=== PATIENT | female | born 1965 | race African-American/Black ===

== ENCOUNTER → 2016-10-30 | Outpatient (CLI) | payer MEDICAID ==
--- NOTE | 2016-10-30 13:24 | RADIOLOGY REPORT (SQ) ---
EXAM DESCRIPTION: U/S RETROPERITON (RENAL/AORTA) COMPLETED DATE/TIME: 10/30/2016 12:57 pm REASON FOR STUDY: COLIC R10.83 COLIC COMPARISON: None. TECHNIQUE: Dynamic and static grayscale images acquired of the kidneys and bladder and recorded on P ACS. Additional selected color Doppler and spectral images recorded. LIMITATIONS: None. FINDINGS: RIGHT KIDNEY: Normal size and appearance, measures 9.9 cm. No masses. No calcifications. No hydronephrosis. LEFT KIDNEY: Normal size and appearance, measuring 9 cm. No masses. No hydronephrosis. No calcifi cations. BLADDER: Incompletely filled. Poorly evaluated. OTHER FINDINGS: No other significant finding. IMPRESSION: NORMAL RENAL AND BLADDER ULTRASOUND. TECHNICAL DOCUMENTATION: JOB ID: [id number] [employer]- All Rights Reserved
== END ==
LOC: RAD 12:17
PROVIDERS: ATTEND Internal Medicine
DX: R10.84 Generalized abdominal pain (principal)
CPT/HCPCS: 76770

== ENCOUNTER → 2016-12-01 | Outpatient (CLI) | payer MEDICAID ==
--- NOTE | 2016-12-01 13:36 | WOMENS IMAGING REPORT ---
EXAM DESCRIPTION: BILAT SCREENING MAMMO W/CAD COMPLETED DATE/TIME: 12/01/2016 10:44 am REASON FOR STUDY: ROUTINE SCREENING; Z12.31 Z12.31 ENCNTR SCREEN MAMMOGRAM FOR MALIGNANT NEOPLASM O F ROSA COMPARISON: Multiple since 2009 TECHNIQUE: Standard craniocaudal and mediolateral oblique views of each breast recorded using [employer] acquisition. LIMITATIONS: None. FINDINGS: Findings present which are benign by mammographic criteria. No suspicious masses, calcifi cations or architectural distortion. Pertinent benign findings: Stable benign right breast calcification 12 o'clock Read with the assistance of CAD. .[facility] R2 Cenova Version 1.3 .[facility] Imaging - R2 Cenova Version 1.3 .[facility] Imaging - R2 Cenova Version 2.4 .[facility] [place] Cenova Version 2.4 .[facility] - R2 [employer] Version 9.2 Benign mammographic findings may include one or more of the following: Smooth masses, popcorn/rim/co arse calcifications, asymmetries, post-procedure changes, and lesions with long-standing stability. IMPRESSION: BENIGN MAMMOGRAPHIC FINDINGS. BIRADS 2 BREAST DENSITY: b. There are scattered areas of fibroglandular density. BIRAD: 2 BENIGN FINDING(S) RECOMMENDATION: ROUTINE SCREENING COMMENT: The patient has been notified of the results by letter per MQSA requirements. Additional no tification policies are in place for contacting patient with suspicious or incomplete findings. Quality ID #[id number]: The [employer] recommends an annual screening mammogram for women aged 40 years or over. This facility utilizes a reminder system to ensure that all patients receive reminder letters, and/or direct phone calls for appointments. This includes reminders for routine scr eening mammograms, diagnostic mammograms, or other Breast Imaging Interventions when appropriate. Th is patient will be placed in the appropriate reminder system. The [employer] (ACR) has developed recommendations for screening MRI of the breast s in certain patient populations, to be used in conjunction with mammography. Breast MRI surveillanc e may be appropriate for women with more than 20% lifetime risk of developing breast cancer as deter mined by genetic testing, significant family history of the disease, or history of mantle radiation f or Hodgkins Disease. ACR Practice Guidelines 2008. TECHNICAL DOCUMENTATION: FINDING NUMBER: (1) ASSESSMENT: (1) JOB ID: [id number] [employer]- All Rights Reserved
== END ==
LOC: WI 08:59
PROVIDERS: ATTEND Internal Medicine
DX: Z12.31 Encounter for screening mammogram for malignant neoplasm of breast (principal)
CPT/HCPCS: 77067; G0202

== ENCOUNTER 2017-05-30 06:51 | Day surgery (SDC) | payer MEDICAID ==
[2017-05-11 10:46] LABS: HEMATOCRIT 37.5 % (36.0-47.0); HEMOGLOBIN 12.8 g/dL (12.0-15.5); HGB HCT DIFFERENCE 0.9; MEAN CORPUSCULAR HEMOGLOBIN 31.3 pg (27.0-33.4); MEAN CORPUSCULAR VOLUME 92 fl (80-97); RED BLOOD COUNT 4.08 10^6/uL (3.72-5.28); WHITE BLOOD COUNT 6.4 10^3/uL (4.0-10.5)
[~2017-05-30 06:51] MED LIST: ACETAMINOPHEN 100 ML IV ONE; CEFAZOLIN 1 GM/D5W RTU 1 GM/50 ML RTUPB IV SCH; DEXTROSE 5%-LACTATED RINGERS 1,000 ML IV PRN; FENTANYL CITRATE INJ/PF 100 MCG/2 ML AMPUL ONE; LACTATED RINGERS 1000 ML IV PRN; LIDOCAINE 0.5% INJ-PF (5 MG/ML) 50 ML SDV SUBCUT PRN; MIDAZOLAM 2 MG/2 ML INJ ONE; NORMAL SALINE 1000 ML (RENAL PATIENTS) IV PRN; ONDANSETRON HCL INJ/PF 4 MG/2 ML SDV ONE; PROPOFOL INJ 200 MG/20 ML VIAL IV ONE
[2017-05-30] MEDS ORDERED: LIDOCAINE 0.5% INJ-PF (5 MG/ML) 50 ML SDV ONE (07:24)
[2017-05-30] MEDS ORDERED: BUPIVACAINE HCL 0.25 % INJ/PF (2.5 MG/1 ML) 30 ML VIAL ONE (07:24)
[2017-05-30] MEDS ORDERED: ALBUTEROL SULFATE 0.083% NEB 2.5 MG/3 ML AMPUL NEB ONE (07:27)
[2017-05-30] MEDS ORDERED: FAMOTIDINE INJ/PF 20 MG/2 ML SDV IV ONE (07:57)
[2017-05-30] MEDS ORDERED: METOCLOPRAMIDE HCL INJ/PF 10 MG/2 ML SDV ONE (07:59)
[2017-05-30] MEDS ORDERED: FENTANYL CITRATE INJ/PF 100 MCG/2 ML AMPUL IV PRN (09:27)
[2017-05-30] MEDS ORDERED: DIPHENHYDRAMINE HCL 50 MG/ML VIAL IV PRN (09:27)
[2017-05-30] MEDS ORDERED: PROMETHAZINE HCL INJ 25 MG/1 ML VIAL IV PRN ×2 (09:27)
[2017-05-30] MEDS ORDERED: ONDANSETRON HCL INJ/PF 4 MG/2 ML SDV IV PRN (09:27)
--- NOTE | 2017-05-30 09:42 | PDOC DISCHARGE SUMMARY ---
Discharge Summary (SDC) - Discharge Final Diagnosis: Left wrist synovitis sheath cyst Date of Surgery: 05/30/17 Discharge Date: 05/30/17 Condition: Good Treatment or Instructions: Keep left arm elevated at all times. Remove exterior dressing in 48 hours. Leave Steri-Strips in place. We will up with [facility] in 1-2 weeks. Prescription for Toradol on chart Referrals: ALENA MARIO MD [Primary Care Provider] - Discharge Diet: As Tolerated Discharge Activity: Activity As Tolerated, Other - Keep left arm elevated on pillows for the next 48 hours Home Care Assistance: None Needed Report the Following to Your Physician Immediately: Shortness of Breath, Increase in Pain, Fever over 101 Degrees
--- NOTE | 2017-05-30 09:46 | Operative Report ---
Operative Report DATE OF SURGERY: 05/30/17 PREOPERATIVE DIAGNOSIS: Left dorsal surface wrist synovial sheath cyst POSTOPERATIVE DIAGNOSIS: Same OPERATION: Complete excision of left wrist synovial sheath cyst TISSUE REMOVED OR ALTERED: Cyst to pathology COMPLICATIONS: None ESTIMATED BLOOD LOSS: Scant INTRAOPERATIVE FINDINGS: See below PROCEDURE: Patient was seen in the preop holding area with left wrist synovial sheath cyst was marked. She was then taken to the operating room where she underwent LMAC anesthesia. Left wrist was exposed, the left wrist hand and forearm were prepped and draped in sterile fashion with Betadine. Surgical plan surgical timeout were conducted. Skin marking made on the prominent aspect of the synovial sheath cyst. The cyst was at the base of the left wrist towards the first metacarpal junction. The skin was anesthetized 1% lidocaine mixed with quarter percent Marcaine. Approximately 3 cm incision was made with a knife. Subcutaneous tissue divided, and the splayed fibers of the dorsal retinaculum were opened. We got right onto the cyst and dissected out in its entirety from surrounding structures. This was approximately 2 cm cyst we took it down to its point of origination which was a somewhat broad-based moment. The base was oversewed with a 3-0 Vicryl suture and the cyst amputated and sent to pathology We checked the recesses of the wound for bleeding and there was none wound closed in layers with 3-0 Vicryl 4-0 Vicryl benzoin Steri-Strips and a bulky dressing applied. Patient tolerated the procedure well, taken to recovery room in stable condition.
--- NOTE | 2017-05-30 13:15 | EKG REPORT ---
SEVERITY:- ABNORMAL ECG - NSR 78 INTRAVENTRICULAR CONDUCTION DELAY : Confirmed by: Daniel Linda MD 30-May-2017 13:15:12
[2017-05-30 13:43] VITALS: BP 115/78
== END 2017-05-30 11:20 | disposition home or self-care (01) ==
LOC: OROUT 06:51
PROVIDERS: ATTEND Surgery
PROC: 0RBP0ZZ Excision of Left Wrist Joint, Open Approach (ICD-10-PCS; principal; 2017-05-30 09:00)
DX: M67.432 Ganglion, left wrist (principal); I10 Essential (primary) hypertension; K21.9 Gastro-esophageal reflux disease without esophagitis; E11.9 Type 2 diabetes mellitus without complications; G43.909 Migraine, unspecified, not intractable, without status migrainosus; M19.90 Unspecified osteoarthritis, unspecified site; F17.210 Nicotine dependence, cigarettes, uncomplicated; Z79.899 Other long term (current) drug therapy; Z79.84 Long term (current) use of oral hypoglycemic drugs
CPT/HCPCS: 36415 ×2; 82962; 84132; 85027; 88304 ×2; 93005; 93010; 25111; J2250; J0690; J3010; J3490; J2765; J2405; S0020; J2704; S0028; J0131; 1810

== ENCOUNTER → 2017-11-09 | Outpatient (CLI) | payer MEDICAID ==
--- NOTE | 2017-11-09 12:29 | RADIOLOGY REPORT (SQ) ---
EXAM DESCRIPTION: FOOT LEFT 2 VIEWS COMPLETED DATE/TIME: 11/09/2017 11:57 am REASON FOR STUDY: PAIN IN LEFT FOOT M25.552 PAIN IN LEFT HIP M79.672 PAIN IN LEFT FOOT COMPARISON: None. NUMBER OF VIEWS: Three views. TECHNIQUE: AP, lateral and oblique radiographic images acquired of the left foot. LIMITATIONS: None. FINDINGS: MINERALIZATION: Normal. BONES: No acute fracture or dislocation. No worrisome bone lesions. JOINTS: No effusions. SOFT TISSUES: No soft tissue swelling. No foreign body. OTHER: No other significant finding. IMPRESSION: NEGATIVE STUDY OF THE LEFT FOOT. NO RADIOGRAPHIC EVIDENCE OF ACUTE INJURY. TECHNICAL DOCUMENTATION: JOB ID: [id number] [employer]- All Rights Reserved Reading location - IP/workstation name: [email or web address]
--- NOTE | 2017-11-09 12:30 | RADIOLOGY REPORT (SQ) ---
EXAM DESCRIPTION: HIP LEFT AP/LATERAL COMPLETED DATE/TIME: 11/09/2017 11:57 am REASON FOR STUDY: PAIN IN LEFT HIP M25.552 PAIN IN LEFT HIP M79.672 PAIN IN LEFT FOOT COMPARISON: Left hip films 07/14/2014 NUMBER OF VIEWS: Two views. TECHNIQUE: AP pelvis and additional frog-leg view of the left hip. LIMITATIONS: None. FINDINGS: MINERALIZATION: Normal. LEFT HIP: No fracture or dislocation. No worrisome bone lesions. RIGHT HIP: No fracture or dislocation. No worrisome bone lesions. PUBIS AND ISCHIUM: No fracture. PELVIS: No fracture. SACRUM: No fracture or dislocation. No worrisome bone lesions. LOWER LUMBAR SPINE: No fracture or dislocation. No worrisome bone lesions. No significant disc disea se. SOFT TISSUES: No findings. OTHER: No other significant finding. IMPRESSION: NEGATIVE STUDY OF THE LEFT HIP AND PELVIS. NO RADIOGRAPHIC EVIDENCE OF ACUTE INJURY. TECHNICAL DOCUMENTATION: JOB ID: [id number] [employer]- All Rights Reserved Reading location - IP/workstation name: [facility] [email or web address]
== END ==
LOC: RAD 11:16
PROVIDERS: ATTEND Internal Medicine
DX: M25.552 Pain in left hip (principal); M79.672 Pain in left foot

== ENCOUNTER 2017-11-10 12:34 | Emergency (ER) | payer MEDICAID ==
[2017-11-10 12:40] VITALS: BP 172/120
--- NOTE | 2017-11-10 12:50 | ER Document Report ---
ED General - General Chief Complaint: Toe Injury Stated Complaint: LEFT PINKY TOE PAIN Time Seen by Provider: 11/10/17 12:42 Mode of Arrival: Ambulatory Information source: Patient Notes: 52-year-old female diabetic struck her toe 2 days ago presents with complaints of worsening pain. Patient denies any fevers or chills notes she put some cream on it and it grande is concerned of skin breakdown. Patient did have x- rays performed yesterday but does not know results and is concerned about fracture TRAVEL OUTSIDE OF THE [place] IN LAST 30 DAYS: No - HPI Patient complains to provider of: Patient stopped taking lisinopril due to concerns of side effects Onset: Other - 2 days ago Quality of pain: Burning Severity: Mild Pain Level: 1 Associated symptoms: Body/muscle aches Exacerbated by: Movement Relieved by: Denies Similar symptoms previously: Yes Recently seen / treated by doctor: Yes - Related Data Allergies/Adverse Reactions: No Known Allergies Allergy (Verified 11/10/17 12:51) Past Medical History - Social History Smoking Status: Never Smoker Cigarette use (# per day): No Chew tobacco use (# tins/day): No Smoking Education Provided: No Family History: Reviewed & Not Pertinent - Past Medical History Cardiac Medical History: Reports: Hx Hypertension Denies: Hx Coronary Artery Disease, Hx Heart Attack Pulmonary Medical History: Denies: Hx Asthma, Hx Bronchitis, Hx COPD, Hx Pneumonia Neurological Medical History: Reports: Hx Migraine. Denies: Hx Cerebrovascular Accident, Hx Seizures Endocrine Medical History: Reports: Hx Diabetes Mellitus Type 2 GI Medical History: Reports: Hx Gastroesophageal Reflux Disease Musculoskeltal Medical History: Reports Hx Arthritis - RA Past Surgical History: Reports: Hx Hysterectomy - Immunizations Hx Diphtheria, Pertussis, Tetanus Vaccination: No Review of Systems - Review of Systems Notes: REVIEW OF SYSTEMS: CONSTITUTIONAL : Denies fever, chills, or sweats. Denies recent illness. EENT: Denies eye, ear, throat, or mouth pain or symptoms. Denies nasal or sinus congestion or discharge. Denies throat, tongue, or mouth swelling or difficulty swallowing. CARDIOVASCULAR: Denies chest pain. Denies palpitations or racing or irregular heart beat. Denies ankle edema. RESPIRATORY: Denies cough, cold, or chest congestion. Denies shortness of breath, difficulty breathing, or wheezing. GASTROINTESTINAL: Admits left foot toe injury GENITOURINARY: Denies difficulty urinating, painful urination, burning, frequency, blood in urine, or discharge. FEMALE GENITOURINARY: Denies vaginal bleeding, heavy or abnormal periods, irregular periods. Denies vaginal discharge or odor. MUSCULOSKELETAL: Denies back or neck pain or stiffness. Denies joint pain or swelling. SKIN: Concerned about skin breakdown HEMATOLOGIC : Denies easy bruising or bleeding. LYMPHATIC: Denies swollen, enlarged glands. NEUROLOGICAL: Denies confusion or altered mental status. Denies passing out or loss of consciousness. Denies dizziness or lightheadedness. Denies headache. Denies weakness or paralysis or loss of use of either side. Denies problems with gait or speech. Denies sensory loss, numbness, or tingling. Denies seizures. PSYCHIATRIC: Denies anxiety or stress. Denies depression, suicidal ideation, or homicidal ideation. ALL OTHER SYSTEMS REVIEWED AND NEGATIVE. PHYSICAL EXAMINATION: GENERAL: Well-appearing, well-nourished and in no acute distress. Hypertension HEAD: Atraumatic, normocephalic. EYES: Pupils equal round and reactive to light, extraocular movements intact, conjunctiva are normal. ENT: Nares patent, oropharynx clear without exudates. Moist mucous membranes. NECK: Normal range of motion, supple without lymphadenopathy LUNGS: Breath sounds clear to auscultation bilaterally and equal. No wheezes rales or rhonchi. HEART: Regular rate and rhythm without murmurs ABDOMEN: Soft, nontender, nondistended abdomen. No guarding, no rebound. No masses appreciated. Female : deferred Musculoskeletal: Normal range of motion, no pitting or edema. No cyanosis. NEUROLOGICAL: Cranial nerves grossly intact. Normal speech, normal gait. Normal sensory, motor exams PSYCH: Normal mood, normal affect. SKIN: no obvious skin abrasions Dictation was performed using [employer] voice recognition software Physical Exam - Vital signs Vitals: Temp Pulse Resp BP Pulse Ox 98.9 F 67 16 172/120 H 100 11/10/17 12:39 11/10/17 12:39 11/10/17 12:39 11/10/17 12:39 11/10/17 12:39 Course - Re-evaluation Re-evalutation: 11/10/17 13:12 I examined the patient's toes carefully, there are no lacerations or abrasions, however given that she is diabetic I will cover her with antibiotics at her request, her blood pressure is elevated but she stopped taking her lisinopril and is not on any other medications I will start her on loaded pain, rashes return precautions have been provided to her After performing a Medical Screening Examination, I estimate there is LOW risk for OPEN FRACTURE, COMPARTMENT SYNDROME, TENDON RUPTURE, ACUTE NEUROVASCULAR INJURY, or RETAINED FOREIGN BODY, thus I consider the discharge disposition reasonable. Also, there is no evidence or peritonitis, sepsis, or toxicity. I have reevaluated this patient multiple times and no significant life threatening changes are noted. The patient and I have discussed the diagnosis and risks, and we agree with discharging home with close follow-up with the understanding that symptoms and presentations can change. We also discussed returning to the Emergency Department immediately if new or worsening symptoms occur. We have discussed the symptoms which are most concerning (e.g., changing or worsening pain, fever, numbness, weakness, cool or painful digits) that necessitate immediate return. - Vital Signs Vital signs: Temp Pulse Resp BP Pulse Ox 98.9 F 67 16 172/120 H 100 11/10/17 12:39 11/10/17 12:39 11/10/17 12:39 11/10/17 12:39 11/10/17 12:39 Discharge - Discharge Clinical Impression: Hypertension Qualifiers: Hypertension type: essential hypertension Qualified Code(s): I10 - Essential ( primary) hypertension Toe injury Qualifiers: Encounter type: subsequent encounter Laterality: left Qualified Code(s): S99.922D - Unspecified injury of left foot, subsequent encounter Condition: Stable Disposition: HOME, SELF-CARE Instructions: Diabetes ([facility]), Control of Diabetes During Illness ([facility]), Wound Infection ([facility]) Prescriptions: Amlodipine Besylate 5 mg PO Q12H #60 tab Hydrocodone/Acetaminophen [[place] 5-325 mg Tablet] 1 tab PO Q6 #14 tablet Sulfamethoxazole/Trimethoprim [Bactrim Ds Tablet] 2 each PO BID #40 tablet Referrals: ALENA MARIO MD [Primary Care Provider] - Follow up tomorrow
== END 2017-11-10 12:55 | disposition home or self-care (01) ==
LOC: ER 12:34
DX: S99.922A Unspecified injury of left foot, initial encounter (principal); X58.XXXA Exposure to other specified factors, initial encounter; I10 Essential (primary) hypertension; E11.9 Type 2 diabetes mellitus without complications
CPT/HCPCS: 99283

== ENCOUNTER 2018-04-25 07:47 | Emergency (ER) | payer MEDICAID ==
[2018-04-25 08:02] VITALS: BP 126/82
--- NOTE | 2018-04-25 08:17 | ER Document Report ---
ED Extremity Problem, Lower - General Chief Complaint: Foot Pain Stated Complaint: RIGHT FOOT PAIN TRAVEL OUTSIDE OF THE [place] IN LAST 30 DAYS: No - HPI Notes: Patient is a 53-year-old female that presents to the emergency department for chief complaint of right foot foreign body. Patient noticed this morning that she had a pain on the bottom of her right foot. She does have diabetes and is concerned that she may start to develop an ulcer. She does not know what she may have stepped on. She states she was outside barefoot and it might be a thorn. She reports a sharp pain on the bottom of her foot and one small area that is worse when she is walking or touching it. She reports some electrical type pain radiating up her leg from her foot into her hip. She denies any known injury or trauma to the area. Past Medical History: Diabetes Past Surgical History: Reviewed in chart Social History: Reviewed in chart Family History: Reviewed and noncontributory for presenting illness Allergies: Reviewed, see documented allergy list. REVIEW OF SYSTEMS: CONSTITUTIONAL : No fever No chills No diaphoresis No recent illness EENT: No vision changes No congestion No sore throat CARDIOVASCULAR: No chest pain No palpitations RESPIRATORY: No shortness of breath No cough No difficulty breathing GASTROINTESTINAL: No abdominal pain No nausea No vomiting No diarrhea GENITOURINARY: No dysuria No hematuria No difficulty urinating MUSCULOSKELETAL: No back pain Right foot pain No arm pain SKIN: No rashes No lesions LYMPHATIC: No swollen, enlarged glands. NEUROLOGICAL: No lightheadedness No headache No weakness No paresthesias PSYCHIATRIC: No anxiety No depression PHYSICAL EXAMINATION: Vital signs reviewed, nursing noted reviewed. GENERAL: Well-appearing, well-nourished and in no acute distress. HEAD: Atraumatic, normocephalic. EYES: Eyes appear normal, extraocular movements intact, sclera anicteric, conjunctiva are normal. ENT: nares patent, oropharynx clear without exudates. Moist mucous membranes. NECK: Normal range of motion, supple without lymphadenopathy LUNGS: Breath sounds clear to auscultation bilaterally and equal. No wheezes rales or rhonchi. HEART: Regular rate and rhythm without murmurs ABDOMEN: Soft, nontender, normoactive bowel sounds. No rebound, guarding, or rigidity. No masses appreciated. EXTREMITIES: Small superficial plantar right foot splinter with tenderness, no surrounding erythema, open wound or ulcer. Good range of motion, no pitting or edema. NEUROLOGICAL: No focal neurological deficits. Moves all extremities spontaneously Motor and sensory grossly intact on exam. PSYCH: Normal mood, normal affect. SKIN: Warm, Dry, normal turgor, no rashes or lesions noted on exposed skin - Related Data Allergies/Adverse Reactions: No Known Allergies Allergy (Verified 04/25/18 07:49) Past Medical History - Social History Smoking Status: Current Every Day Smoker Chew tobacco use (# tins/day): No Frequency of alcohol use: Occasional Drug Abuse: None Family History: Reviewed & Not Pertinent Patient has suicidal ideation: No Patient has homicidal ideation: No - Past Medical History Cardiac Medical History: Reports: Hx Hypertension Denies: Hx Coronary Artery Disease, Hx Heart Attack Pulmonary Medical History: Denies: Hx Asthma, Hx Bronchitis, Hx COPD, Hx Pneumonia Neurological Medical History: Reports: Hx Migraine. Denies: Hx Cerebrovascular Accident, Hx Seizures Endocrine Medical History: Reports: Hx Diabetes Mellitus Type 2 Renal/ Medical History: Denies: Hx Peritoneal Dialysis GI Medical History: Reports: Hx Gastroesophageal Reflux Disease Musculoskeletal Medical History: Reports Hx Arthritis - RA Past Surgical History: Reports: Hx Hysterectomy - Immunizations Hx Diphtheria, Pertussis, Tetanus Vaccination: No Review of Systems - Review of Systems Notes: Dictated Physical Exam - Vital signs Vitals: Temp Pulse Resp BP Pulse Ox 98.3 F 75 16 126/82 H 99 04/25/18 07:57 04/25/18 07:57 04/25/18 07:57 04/25/18 07:57 04/25/18 07:57 - Notes Notes: Dictated Course - Re-evaluation Re-evalutation: 04/25/18 08:17 Vitals reviewed. Nursing notes reviewed. Patient has a very superficial thorn in the bottom of her right foot. It was easily removed with tweezers. There is no surrounding signs of infection or drainage. The wound is very shallow and superficial and not currently requiring prophylactic antibiotics. Patient counseled on good wound care and keeping a close eye on it because of her diabetes. She was counseled on good glucose management at home. She will follow with her primary care doctor for reevaluation as needed in the next few days. - Vital Signs Vital signs: Temp Pulse Resp BP Pulse Ox 98.3 F 75 16 126/82 H 99 04/25/18 07:57 04/25/18 07:57 04/25/18 07:57 04/25/18 07:57 04/25/18 07:57 Procedures - Additional Procedures Foreign body Time performed: 08:18 Additional Procedures: Other - Foreign body removal Notes: 04/25/18 08:19 Verbal consent obtained. Tweezers used to remove a superficial right plantar foot foreign body. Area cleaned with alcohol after foreign body removed. There is no drainage. No complications. Patient tolerated with no issues. Discharge - Discharge Clinical Impression: Splinter of right foot Qualifiers: Encounter type: initial encounter Qualified Code(s): S90.851A - Superficial foreign body, right foot, initial encounter Condition: Stable Disposition: HOME, SELF-CARE Additional Instructions: Please return to the emergency department if you have any worsening, or concern of your symptoms. Please return to the emergency department if you develop chest pain, difficulty breathing, severe abdominal pain, or ongoing vomiting. Please follow-up with your primary care physician in 2-3 days and any other recommended physicians. If prescribed, take all medications as directed. If you have any questions or concerns do not hesitate to return the emergency department for evaluation. A small splinter was removed from the bottom of your right foot. Keep this area clean by washing with warm soapy water 2-3 times a day. Monitor the area closely for signs of infection including increased redness, pain, swelling, and drainage. See your primary care doctor for reevaluation if you start to develop signs of infection. Referrals: ALENA MARIO MD [Primary Care Provider] - Follow up in 3-5 days
== END 2018-04-25 08:25 | disposition home or self-care (01) ==
LOC: ER 07:47
DX: S90.851A Superficial foreign body, right foot, initial encounter (principal); X58.XXXA Exposure to other specified factors, initial encounter; F17.200 Nicotine dependence, unspecified, uncomplicated; E11.9 Type 2 diabetes mellitus without complications; I10 Essential (primary) hypertension; Z90.710 Acquired absence of both cervix and uterus
CPT/HCPCS: 99283

== ENCOUNTER → 2019-04-08 | Outpatient (CLI) | payer MEDICAID ==
--- NOTE | 2019-04-08 12:13 | WOMENS IMAGING REPORT ---
EXAM DESCRIPTION: 3D SCREENING MAMMO BILAT COMPLETED DATE/TIME: 04/08/2019 9:33 am REASON FOR STUDY: Z12.31 SCREENING MAMMO Z12.31 ENCNTR SCREEN MAMMOGRAM FOR MALIGNANT NEOPLASM OF B RE COMPARISON: 2015, 2016 EXAM PARAMETERS: Views: Standard craniocaudal and mediolateral oblique views of each breast recorded using digital acquisition and breast tomosynthesis. Read with the assistance of CAD. .[facility] - [email or web address] Version 9.2 LIMITATIONS: None. FINDINGS: No suspicious masses, suspicious calcifications or architectural distortion. No areas of c oncern. IMPRESSION: NEGATIVE MAMMOGRAM. BIRADS 1. BREAST DENSITY: b. There are scattered areas of fibroglandular density. BIRAD: ASSESSMENT: 1 NEGATIVE RECOMMENDATION: ROUTINE SCREENING COMMENT: The patient has been notified of the results by letter per MQSA requirements. Additional no tification policies are in place for contacting patient with suspicious or incomplete findings. Quality ID #[id number]: The [employer] recommends an annual screening mammogram for women aged 40 years or over. This facility utilizes a reminder system to ensure that all patients receive reminder letters, and/or direct phone calls for appointments. This includes reminders for routine scr eening mammograms, diagnostic mammograms, or other Breast Imaging Interventions when appropriate. Th is patient will be placed in the appropriate reminder system. TECHNICAL DOCUMENTATION: FINDING NUMBER: (1) ASSESSMENT: (1) JOB ID: [id number] [employer]- All Rights Reserved Reading location - IP/workstation name: [email or web address]
== END ==
LOC: RAD 08:55
PROVIDERS: ATTEND Internal Medicine
DX: Z12.31 Encounter for screening mammogram for malignant neoplasm of breast (principal)
CPT/HCPCS: 77063; 77067

== ENCOUNTER → 2019-10-20 | Outpatient (CLI) | payer MEDICAID ==
--- NOTE | 2019-10-20 12:07 | RADIOLOGY REPORT (SQ) ---
EXAM DESCRIPTION: CT ABD/PELVIS WITH IV ONLY IMAGES COMPLETED DATE/TIME: 10/20/2019 11:50 am REASON FOR STUDY: RLQ PAIN (R10.31) R10.31 RIGHT LOWER QUADRANT PAIN COMPARISON: None. TECHNIQUE: CT scan of the abdomen and pelvis performed using helical scanning technique with dynamic intravenous contrast injection. No oral contrast. Images reviewed with lung, soft tissue, and bone windows. Reconstructed coronal and sagittal MPR images reviewed. Delayed images for evaluation of the urinary system also acquired. All images stored on PACS. All CT scanners at this facility use dose modulation, iterative reconstruction, and/or weight based d osing when appropriate to reduce radiation dose to as low as reasonably achievable (ALARA). [facility]: Dose Right [facility]: CareDose [facility]: Dose Right [facility]: Teradose 4D [facility]: Rijuven CONTRAST TYPE AND DOSE: Contrast/concentration: Isovue 350.00 mg/ml; Total Contrast Delivered: 75.0 ml; Total Saline Delivered: 58.1 ml RENAL FUNCTION: Creatinine 0.7 milligrams/deciliter. RADIATION DOSE: CT Rad equipment meets quality standard of care and radiation dose reduction techniq ues were employed. CTDIvol: 4.9 - 6.5 mGy. DLP: 583 mGy-cm. LIMITATIONS: None. FINDINGS: LOWER CHEST: No acute findings. LIVER: The morphology of the liver is noncirrhotic. The portal veins are patent. There is no hepati c mass. SPLEEN: No splenomegaly or splenic mass. PANCREAS: No acute abnormality of the pancreas. GALLBLADDER: No abnormality that is apparent on CT. ADRENAL GLANDS: No mass or asymmetry. RIGHT KIDNEY AND URETER: No solid masses. No calcifications. No hydronephrosis or hydroureter. LEFT KIDNEY AND URETER: No solid masses. No calcifications. No hydronephrosis or hydroureter. AORTA AND VESSELS: No aneurysm or dissection of the abdominal aorta. RETROPERITONEUM: No retroperitoneal adenopathy, hemorrhage or mass. BOWEL AND PERITONEAL CAVITY: No bowel obstruction, bowel wall thickening or pericolonic/ perienteric inflammation. No mesenteric adenopathy, free intraperitoneal fluid or mesenteric/ omental inflammati on. APPENDIX: Unable to identify the appendix. PELVIS: The uterus is surgically absent. The urinary bladder is nondistended. There is no abnormali ty of the adnexa that is apparent on CT. ABDOMINAL WALL: Fat-containing femoral hernia on the right that measures 5 cm in craniocaudal diamete r and 1 cm in transverse diameter. BONES: No acute fracture or osseous lesion. OTHER: No other finding. IMPRESSION: 1. No acute intra-abdominal abnormality. 2. Fat-containing femoral hernia on the right that measures 5 cm in craniocaudal diameter 1 cm in tra nsverse diameter. TECHNICAL DOCUMENTATION: JOB ID: [id number] Quality ID # [id number]: Final reports with documentation of one or more dose reduction techniques (e.g., Au tomated exposure control, adjustment of the mA and/or kV according to patient size, use of iterative reconstruction technique) 2010 [employer]- All Rights Reserved Reading location - IP/workstation name: [email or web address]
== END ==
LOC: RAD 11:18
PROVIDERS: ATTEND Internal Medicine
DX: R10.31 Right lower quadrant pain (principal)
CPT/HCPCS: 74177; 82565

== ENCOUNTER 2019-12-09 07:38 | Day surgery (SDC) | payer MEDICAID ==
[~2019-12-09 07:38] MED LIST changes: -ACETAMINOPHEN 100 ML IV ONE; -CEFAZOLIN 1 GM/D5W RTU 1 GM/50 ML RTUPB IV SCH; +CEFAZOLIN 2 GM/D5W RTU 2 GM/50 ML RTUPB IV PRN; +DEXAMETHASONE SOD PHOSPHATE INJ 4 MG/1 ML VIAL ONE; -DEXTROSE 5%-LACTATED RINGERS 1,000 ML IV PRN; -LACTATED RINGERS 1000 ML IV PRN; -LIDOCAINE 0.5% INJ-PF (5 MG/ML) 50 ML SDV SUBCUT PRN; -NORMAL SALINE 1000 ML (RENAL PATIENTS) IV PRN
[2019-12-09] MEDS ORDERED: CEFAZOLIN 2 GM/D5W RTU 2 GM/50 ML RTUPB IV ONE (07:48)
[2019-12-09] MEDS ORDERED: BUPIVACAINE INJ/PF LIPOSOME/PF 266 MG/20 ML SDV ONE (10:14)
[2019-12-09] MEDS ORDERED: ONDANSETRON HCL INJ/PF 4 MG/2 ML SDV IV PRN (10:24)
[2019-12-09] MEDS ORDERED: FENTANYL CITRATE INJ/PF 100 MCG/2 ML AMPUL IV PRN ×3 (10:24)
[2019-12-09] MEDS ORDERED: PROMETHAZINE HCL INJ 25 MG/1 ML VIAL IV PRN ×2 (10:24)
[2019-12-09] MEDS ORDERED: MEPERIDINE HCL/PF INJ 25 MG/1 ML DISP.SYRIN IV PRN (10:24)
[2019-12-09] MEDS ORDERED: MORPHINE SULFATE 10 MG/ML INJ IV PRN (10:24)
[2019-12-09] MEDS ORDERED: DIPHENHYDRAMINE HCL 50 MG/ML VIAL IV PRN (10:24)
--- NOTE | 2019-12-09 11:04 | Discharge Summary ---
Discharge Summary (SDC) - Discharge Final Diagnosis: right femoral hernia Date of Surgery: 12/09/19 Discharge Date: 12/09/19 Condition: Good Treatment or Instructions: ok to shower tomorrow. pat dry. Prescriptions: Hydrocodone/Acetaminophen [Buchanan 10-325 mg Tablet] 1 tab PO Q6HP PRN #15 tablet PRN Reason: Referrals: ALENA MARIO MD [Primary Care Provider] - Discharge Diet: As Tolerated Discharge Activity: Activity As Tolerated, No Lifting Over 10 Pounds Report the Following to Your Physician Immediately: Nausea, Vomiting, Increase in Pain, Fever over 101 Degrees
--- NOTE | 2019-12-09 11:08 | Operative Report ---
Nonrecallable Operative Report DATE OF SURGERY: 12/09/19 PREOPERATIVE DIAGNOSIS: right femoral hernia POSTOPERATIVE DIAGNOSIS: right femoral hernia OPERATION: right shyla hernia repair SURGEON: TRACY ADHIKARI E LEARNING COORDINATOR: STEPHANE VALDEZ ANESTHESIA: GA TISSUE REMOVED OR ALTERED: none COMPLICATIONS: none ESTIMATED BLOOD LOSS: 10cc INTRAOPERATIVE FINDINGS: see note PROCEDURE: Patient was brought to the operating awake alert stable condition placed in the operative table supine position General anesthesia and intubated. Right groin was prepped draped usual sterile fashion for the procedure. A curvilinear incision was made in the right groin crease dissection carried down through subcutaneous tissue and Alexis's fascia with Bovie cautery external Robert was opened in line with its fibers the fascia was retracted laterally and the external ring was identified the external ring had a bulging it with the round ligament and a hernia sac with fat within the sac the fat and hernia sac was dissected away from the round ligament the round ligament was divided with Bovie cautery. The hernia sac was opened twisted upon itself and ligated at its neck with 0 Ethibond. It with the stump dropped back in the abdominal cavity a Shyla repair then ensued. The Michael's ligament was sewn to the conjoined tendon with interrupted 0 Ethibond sutures. A transition stitch was performed between Michael's ligament the adventitia of the femoral vein and the conjoined tendon. The rest of the repair was done between the shelving edge of the external oblique and the conjoined tendon. A relaxing incision was then made with Bovie cautery and the conjoined tendon. We irrigated the wound with a Exparel solution. The external oblique was then closed with a running 2-0 Vicryl suture and skin was closed with intracuticular 4-0 Maxon Steri-Strips completed the procedure estimated blood loss was less than 10 cc sponge needle counts correct x2 the patient was awakened in the operative extubated transferred recovery stable condition no complications
[2019-12-09] MEDS ORDERED: HYDROCODONE/ACETAMINOPHEN 10-325 MG TABLET ONE (11:57)
[2019-12-09] MEDS ORDERED: HYDROCODONE/ACETAMINOPHEN 10-325 MG TABLET PO ONE (12:30)
[2019-12-09 13:47] VITALS: BP 158/100
[2019-12-09] MEDS ORDERED: SUCCINYLCHOLINE CHLORIDE INJ 200 MG/10 ML VIAL ONE (14:10)
[2019-12-09] MEDS ORDERED: GLYCOPYRROLATE 1 MG/5 ML VIAL ONE (14:10)
[2019-12-09] MEDS ORDERED: VECURONIUM BROMIDE INJ 10 MG VIAL IV ONE (14:10)
[2019-12-09] MEDS ORDERED: NEOSTIGMINE METHYLSULFATE 10 MG/10 ML VIAL ONE (14:10)
== END 2019-12-09 13:05 | disposition home or self-care (01) ==
LOC: OROUT 07:38
PROVIDERS: ATTEND Surgery
DX: K41.90 Unilateral femoral hernia, without obstruction or gangrene, not specified as recurrent (principal); E11.9 Type 2 diabetes mellitus without complications; I10 Essential (primary) hypertension; F17.210 Nicotine dependence, cigarettes, uncomplicated; K21.9 Gastro-esophageal reflux disease without esophagitis; Z03.818 Encounter for observation for suspected exposure to other biological agents ruled out
CPT/HCPCS: 82962; 87635; 49550; J2250; J1100; J3010; J3490 ×2; J2710; J0330; J2405; J2704; J0690; C9290; C9803; 830